=== PATIENT | female | born 1990 | race African-American/Black ===

== ENCOUNTER 2019-11-30 12:59 | Inpatient (IN) ==
[2019-11-30 13:34] LABS: URINE SOURCE VOIDED
[2019-11-30 13:41] LABS: BILIRUBIN URINE NEGATIVE (NEGATIVE); BLOOD URINE NEGATIVE (NEGATIVE); COLOR YELLOW; GLUCOSE URINE NEGATIVE (NEGATIVE); KETONE URINE NEGATIVE (NEGATIVE); LEUKOCYTES URINE NEGATIVE (NEGATIVE); NITRITE URINE NEGATIVE (NEGATIVE); PH URINE 6.5; PROTEIN URINE NEGATIVE (NEGATIVE); SP GRAVITY URINE 1.016; TURBIDITY URINE CLEAR (CLEAR); UROBILINOGEN URINE 2 mg/dL (NORMAL)
[2019-11-30] MEDS ORDERED: LR 500 ML IV ONE (15:04)
[2019-11-30] MEDS ORDERED: AMPICILLIN 2 GM in NS 100 ML IV ONE (15:04)
[2019-11-30] MEDS ORDERED: PEPCID IV PRN (15:04)
[2019-11-30] MEDS ORDERED: PEPCID PO PRN ×2 (15:04)
[2019-11-30] MEDS ORDERED: KEFZOL 2 GM/D5W 2 GM/50 ML IVPB IV PRN (15:04)
[2019-11-30] MEDS ORDERED: REGLAN PO PRN (15:04)
[2019-11-30] MEDS ORDERED: TYLENOL PO PRN (15:04)
[2019-11-30] MEDS ORDERED: ZOFRAN IV PRN (15:04)
[2019-11-30] MEDS ORDERED: SODIUM CHLORIDE 0.9% INJ SCH (15:15)
[2019-11-30] MEDS: LR 1,000 ML IV SCH ×2 (16:45→18:35)
[2019-11-30] MEDS: PITOCIN 30 UNITS/NS 30 UNIT/500 ML IV.SOLN IV SCH ×2 (17:00→22:24)
[2019-11-30 18:13] LABS: BASO# 0.02 X1000 (0.0-0.2); BASO% 0.2 % (0.0-0.8); EOS# 0.27 X1000 (0.0-0.7); EOS% 3.1 % (0.0-10.0); HEMATOCRIT 33.9 % (37.0-47.0); HEMOGLOBIN 11.3 g/dL (12.0-16.0); LYMPH# 2.69 X1000 (1.2-3.4); LYMPH% 30.5 % (20.5-51.1); MCH 28.9 PG (27-31); MCHC 33.3 g/dL (33-37); MCV 86.7 FL (81-99); MONO# 0.65 X1000 (0.11-0.59); MONO% 7.4 % (1.7-9.3); NEUT# 5.18 X1000 (1.4-6.5); NEUT% 58.8 % (42.2-75.2); PLT 202 X1000 (130-400); RBC 3.91 XMIL (4.2-5.4); RDW 12.7 % (11.5-14.5); WBC 8.81 X1000 (4.8-10.8)
[2019-11-30 18:17] LABS: INR 1.07; PROTIME 14.1 Seconds (11.0-16.0); PTT 28.7 Seconds (22.3-41.8)
[2019-11-30] MEDS ORDERED: PHENERGAN IV ONE (18:21)
[2019-11-30] MEDS ORDERED: SODIUM CHLORIDE 0.9% INJ ONE (18:21)
[2019-11-30] MEDS: STADOL IV PRN ×2 (18:34→21:07)
[2019-11-30 18:57] LABS: AGAP 15; ALB/GLOB RATIO 1.1; ALBUMIN 3.4 g/dL (3.5-5.0); ALKALINE PHOSPHATASE 171 U/L (32-104); BUN 6 mg/dL (8-22); CHLORIDE 103 mmol/L (98-107); COSMO 270; CREATININE 0.7 mg/dL (0.5-0.9); ESTIMATED GFR > 60; GLUCOSE 79 mg/dL (70-104); GOT 15 U/L (10-30); GPT 7 U/L (10-36); POTASSIUM 4.5 mmol/L (3.5-5.1); SODIUM 137 mmol/L (136-145); TCO2 19 mmol/L (25-35); TOTAL BILIRUBIN 0.36 mg/dL (0.20-1.00); TOTAL PROTEIN 6.5 g/dL (6.3-8.3)
[2019-11-30] MEDS ORDERED: AMPICILLIN 1 GM in NS 50 ML IV SCH (19:04)
[2019-11-30] MEDS ORDERED: NAROPIN 0.2% INJ ONE (20:27)
[2019-11-30] MEDS ORDERED: FENTANYL-BUPIV-NS 500 MCG-0.125% 250 ML EPIDURAL SCH (20:30)
[2019-11-30 20:46] LABS: UR AMPHETAMINES QUAL NONE DETECTED (NONE DETECT); UR BARBITUATES QUAL NONE DETECTED (NONE DETECT); UR BENZODIAZEPIN QUAL NONE DETECTED (NONE DETECT); UR CANNABINOIDS QUAL NONE DETECTED (NONE DETECT); UR COCAINE QUAL NONE DETECTED (NONE DETECT); UR METHADONE QUAL NONE DETECTED (NONE DETECT); UR OPIATES QUAL NONE DETECTED (NONE DETECT); UR OXYCODONE QUAL NONE DETECTED (NONE DETECT); UR PCP QUAL NONE DETECTED (NONE DETECT)
--- NOTE | 2019-11-30 21:21 | HISTORY AND PHYSICAL ---
CHIEF COMPLAINT: Leaking fluid. PRESENTING HISTORY: This is a 29-year-old G3, P0, 0-0-2-0 at 36 weeks and 6 days who presented to Labor and Delivery with a complaint of leaking clear fluid. She states she noticed it occur first at approximately 5:30 this morning after she woke up, and continued to leak clear fluid until she came in at 1:30 this afternoon. She denies any vaginal bleeding or contractions. She endorses movement. ROM Plus testing in triage was positive for rupture of membranes. She has received care this with Dr. Velázquez. Her has been complicated by tobacco abuse and urinary drug screen positive for marijuana. She also had an abnormal hemoglobin electrophoresis consistent with sickle cell trait. Her GBS status is unknown. ESTIMATED DUE DATE: 12/22/2019 by T2 ultrasound. OBSTETRIC HISTORY: 1. G1, SAB at approximately 4 weeks with no D C (2009). 2. G2, spontaneous at approximately 12 weeks, no D and C (2015). 3. G3 is current . GYNECOLOGIC HISTORY: She has a remote history of chlamydia and Trichomonas that were treated. Gonorrhea and Chlamydia were negative during this . She also states her Pap smear was normal this , but she has had a history of abnormal Pap smears in the past. PAST MEDICAL HISTORY: Denies medications. MEDICATIONS: vitamin p.o. daily. ALLERGIES: No known drug allergies. SURGICAL HISTORY: Denies. SOCIAL HISTORY: She smokes 1/2 pack per day. She denies any alcohol or drug use. FAMILY HISTORY: Denies. VITAL SIGNS: Blood pressure 113/75, heart rate 67, O2 saturation 96% on room air, respiratory rate 20. HEART TRACINGS: 140/moderate variability/positive accelerations/no decelerations. Tocometry negative. LABS: Urinalysis negative. membrane rupture positive. CBC, type and screen and 3rd- trimester labs pending. labs: Blood type B positive, HIV negative, RPR negative, hepatitis C antibody negative, hepatitis B surface antigen negative. Rubella immune. UDS positive for marijuana. Hemoglobin electrophoresis consistent with hemoglobin S trait. One-hour GTT 97. PHYSICAL EXAMINATION: GENERAL: Alert. Appears well, in no acute distress. LUNGS: Clear to auscultation, no respiratory distress. CARDIOVASCULAR: Regular rate and rhythm. ABDOMEN: Soft, gravid, nontender. STERILE VAGINAL EXAM: Fingertip, 20%, -4 station. EXTREMITIES: No clubbing, cyanosis, or edema. IMAGING: Vertex presentation on bedside ultrasound. ASSESSMENT/PLAN: A 29-year-old G3, P0, 0-0-2-0 at 36 weeks and 6 days with , pre-labor, rupture of membranes, tobacco abuse, sickle cell trait, limited care. 1. Admit to Labor and Delivery. 2. Continuous external monitoring and tocometry. 3. Group B Strep status is unknown, so we will treat with ampicillin. 4. We will start induction with IV Pitocin. 5. Patient may have epidural when she desires. 6. Anticipate vaginal delivery.
[2019-11-30] MEDS ORDERED: ATARAX PO PRN (22:20)
[2019-11-30] MEDS ORDERED: MOTRIN PO PRN (22:20)
[2019-11-30] MEDS ORDERED: MINERAL OIL PO PRN (22:20)
[2019-11-30] MEDS ORDERED: PITOCIN IM PRN (22:20)
[2019-11-30] MEDS ORDERED: PERCOCET-5 PO PRN (22:20)
[2019-11-30] MEDS ORDERED: BENADRYL IV PRN (22:20)
[2019-11-30] MEDS ORDERED: PERCOCET-10 PO PRN (22:20)
[2019-11-30] MEDS ORDERED: XYLOCAINE-MPF 1% INJ PRN (22:20)
[2019-11-30] MEDS ORDERED: PERI MEDS (DERMOPLAST/NUPERCAINAL/TUCKS) MISC PRN (22:20)
[2019-11-30] MEDS ORDERED: BOOSTRIX VACCINE IM ONE (22:20)
[2019-11-30] MEDS ORDERED: AMBIEN PO PRN (22:20)
[2019-11-30] MEDS ORDERED: CYTOTEC PO PRN (22:20)
[2019-11-30] MEDS ORDERED: HYDROXYZINE IM PRN (22:20)
[2019-11-30] MEDS ORDERED: M-M-R II VACCINE SUBQ ONE (22:20)
[2019-11-30] MEDS ORDERED: BENADRYL PO PRN (22:20)
[2019-11-30] MEDS ORDERED: PITOCIN 20 UNITS/NS 20 UNITS/1,000 ML IV.SOLN IV SCH (22:30)
[2019-11-30] MEDS ORDERED: PITOCIN 30 UNITS/NS 30 UNIT/500 ML IV.SOLN IV SCH (22:30)
[2019-12-01 05:56] LABS: BASO# 0.02 X1000 (0.0-0.2); BASO% 0.1 % (0.0-0.8); EOS# 0.07 X1000 (0.0-0.7); EOS% 0.5 % (0.0-10.0); HEMATOCRIT 31.2 % (37.0-47.0); HEMOGLOBIN 10.5 g/dL (12.0-16.0); IMM GRAN# 0.02 X1000 (0.0-0.04); IMM GRAN% 0.1 % (0.0-0.5); LYMPH# 1.97 X1000 (1.2-3.4); MCH 29.3 PG (27-31); MCHC 33.7 g/dL (33-37); MCV 87.2 FL (81-99); MONO% 7.8 % (1.7-9.3); MPV 11.1 FL (7.4-10.4); NEUT# 10.85 X1000 (1.4-6.5); NEUT% 77.5 % (42.2-75.2); PLT 174 X1000 (130-400); RBC 3.58 XMIL (4.2-5.4); RDW 12.5 % (11.5-14.5); WBC 14.03 X1000 (4.8-10.8)
--- NOTE | 2019-12-01 07:09 | OPERATIVE NOTE ---
PROCEDURE DATE: 11/30/2019 DELIVERY NOTE: A 29-year-old, G 3, P 0-0-2-0 at 36 weeks and 6 days presented to Labor and Delivery with P-PROM. She was induced with Pitocin and labor was uncomplicated. She underwent a spontaneous vaginal delivery of a vigorous viable male in CARLEY presentation with Apgars 9 and 10. The infant's head, shoulders and body delivered without difficulty with maternal pushing effort. The cord was clamped and cut and infant was placed on maternal chest. The placenta delivered spontaneously intact with a three-vessel cord. No vaginal lacerations were noted. Anesthesia epidural. Estimated blood loss 150 mL. Pediatric nurse in attendance. Mother stable in recovery room.
--- NOTE | 2019-12-01 12:45 | OB/GYN PROGRESS NOTE ---
- Subjective 29yo PPD#1 s/p at 36.6w. Pt currently w/o complaints. Denies pain. Ambulating and urinating without difficulty. Tolerating regular diet, denies fever/c/n/v. Reports decreased lochia and positive breast feeding. Still considering control options OB Physical Exam Vital Signs - 8 hr 12/01/19 08:00 Temperature 97.4 F L Pulse Rate 77 Respiratory Rate 16 Blood Pressure 112/72 - CONSTITUTIONAL General Appearance: appears well, alert, no apparent distress - RESPIRATORY Respiratory: lungs clear - CARDIOVASCULAR Cardiovascular: regular rate, rhythm - GASTROINTESTINAL (ABDOMEN) Abdominal Exam: non tender, soft (FF below umbilicus) - MUSCULOSKELETAL Extremity: no calf tenderness - PSYCHIATRIC Psych/Mental Status: normal mood/affect, oriented x 3 Active Medications Generic Name Dose Route Start Last Admin Trade Name Freq PRN Reason Stop Dose Admin Acetaminophen 650 mg 11/30/19 15:04 Tylenol PO Q4-6H PRN PRN Headache Benzocaine 1 each 11/30/19 22:20 Payton Meds (Dermoplast/Nupercainal/Tucks) MISC 3-4XDAY PRN PRN episiotomy/hemorrhoids Butorphanol Tartrate 2 mg 11/30/19 15:04 11/30/19 21:07 Stadol IV 2 mg PRN PRN Administration Pain Diphenhydramine HCl 12.5 mg 11/30/19 22:20 Benadryl IV Q4H PRN PRN Itching Diphenhydramine HCl 25 mg 11/30/19 22:20 Benadryl PO Q4H PRN PRN Itching Famotidine 20 mg 11/30/19 15:04 Pepcid PO ONCE PRN PRN section Famotidine 20 mg 11/30/19 15:04 Pepcid IV Q12H PRN PRN GI upset or indigestion Famotidine 40 mg 11/30/19 15:04 Pepcid PO Q12H PRN PRN GI upset or indigestion Hydroxyzine HCl 50 mg 11/30/19 22:20 Atarax PO Q3-4H PRN PRN Nausea Hydroxyzine HCl 50 mg 11/30/19 22:20 Hydroxyzine IM Q3-4H PRN PRN Nausea Cefazolin Sodium/Dextrose 2 gm in 50 mls @ 50 mls/hr 11/30/19 15:04 Kefzol 2 Gm/D5w IV ONCE PRN PRN section Fentanyl/Bupivacaine/Sodium Chlor 250 mls @ 0 mls/hr 11/30/19 20:30 Ashofgen-Oqmba-Gt 500 Mcg-0.125% EPIDURAL DIRECTED ROM As Directed Oxytocin/Sodium Chloride 20 units in 1,000 mls @ 0 mls/hr 11/30/19 22:30 11/30/19 22:24 Pitocin 20 Units/Ns IV 125 mls/hr .Q0M ROM Administration As Directed Ibuprofen 800 mg 11/30/19 22:20 Motrin PO Q8H PRN PRN cramping Lidocaine HCl 30 ml 11/30/19 22:20 Xylocaine-Mpf 1% INJ PRN PRN Perineal repair Metoclopramide HCl 10 mg 11/30/19 15:04 Reglan PO ONCE PRN PRN section Mineral Oil 30 ml 11/30/19 22:20 Mineral Oil PO PRN PRN Perineal massage Misoprostol 800 microgm 11/30/19 22:20 Cytotec PO PRN PRN Severe bleeding Ondansetron HCl 4 mg 11/30/19 15:04 11/30/19 17:32 Zofran IV 4 mg PRN PRN Administration Nausea Oxycodone/Acetaminophen 1 each 11/30/19 22:20 Percocet-10 PO Q3-4H PRN PRN Pain (7-10 on Pain Scale) Oxycodone/Acetaminophen 1 each 11/30/19 22:20 Percocet-5 PO Q3-4H PRN PRN Pain (1-6 on Pain Scale) Oxytocin 20 unit 11/30/19 22:20 Pitocin IM PRN PRN Severe bleeding Senna/Docusate Sodium 1 each 12/01/19 21:00 Pericolace PO QHS ROM Sodium Chloride 5 - 10 ml 11/30/19 15:15 Sodium Chloride 0.9% INJ DIRECTED ROM Zolpidem Tartrate 10 mg 11/30/19 22:20 Ambien PO HS PRN PRN Sleep Laboratory Results - last 24 hr 11/30/19 11/30/19 11/30/19 13:13 13:13 13:13 WBC RBC Hgb Hct MCV MCH MCHC RDW Std Deviation Plt Count MPV Immature Gran % (Auto) Neut % (Auto) Lymph % (Auto) Stanton % (Auto) Eos % (Auto) Baso % (Auto) Immature Gran # (Auto) Neut # (Auto) Lymph # (Auto) Stanton # (Auto) Eos # (Auto) Baso # (Auto) Corrected WBC (Man) PT INR PTT (Actin FS) Fibrinogen Sodium Potassium Chloride Carbon Dioxide Anion Gap BUN Creatinine Estimated GFR/1.73 m2 BUN/Creatinine Ratio Glucose Calculated Osmolality Uric Acid Calcium Total Bilirubin AST ALT Alkaline Phosphatase Total Protein Albumin Globulin Albumin/Globulin Ratio Urine Source VOIDED Urine Color YELLOW Urine Turbidity CLEAR Urine pH 6.5 Ur Specific [place] 1.016 Urine Protein NEGATIVE Ur Glucose (Stick) NEGATIVE Ur Ketones (Stick) NEGATIVE Urine Blood NEGATIVE Urine Nitrite NEGATIVE Urine Bilirubin NEGATIVE Urobilinogen Dipstick 2 A Urine Leukocytes NEGATIVE Membranes Rupture POSITIVE Urine Opiates Screen NONE DETECTED Ur Oxycodone Screen NONE DETECTED Ur Methadone, Qual NONE DETECTED Ur Barbiturates Screen NONE DETECTED Ur Phencyclidine Scrn NONE DETECTED Ur Amphetamines Screen NONE DETECTED U Benzodiazepines Scrn NONE DETECTED Urine Cocaine Screen NONE DETECTED U Cannabinoids Screen NONE DETECTED RPR Blood Type Antibody Screen 11/30/19 11/30/19 11/30/19 16:45 16:45 16:45 WBC Cancelled RBC Cancelled Hgb Cancelled Hct Cancelled MCV Cancelled MCH Cancelled MCHC Cancelled RDW Std Deviation Cancelled Plt Count Cancelled MPV Cancelled Immature Gran % (Auto) Cancelled Neut % (Auto) Cancelled Lymph % (Auto) Cancelled Stanton % (Auto) Cancelled Eos % (Auto) Cancelled Baso % (Auto) Cancelled Immature Gran # (Auto) Cancelled Neut # (Auto) Cancelled Lymph # (Auto) Cancelled Stanton # (Auto) Cancelled Eos # (Auto) Cancelled Baso # (Auto) Cancelled Corrected WBC (Man) Cancelled PT INR PTT (Actin FS) Fibrinogen Sodium Potassium Chloride Carbon Dioxide Anion Gap BUN Creatinine Estimated GFR/1.73 m2 BUN/Creatinine Ratio Glucose Calculated Osmolality Uric Acid Calcium Total Bilirubin AST ALT Alkaline Phosphatase Total Protein Albumin Globulin Albumin/Globulin Ratio Urine Source Urine Color Urine Turbidity Urine pH Ur Specific [place] Urine Protein Ur Glucose (Stick) Ur Ketones (Stick) Urine Blood Urine Nitrite Urine Bilirubin Urobilinogen Dipstick Urine Leukocytes Membranes Rupture Urine Opiates Screen Ur Oxycodone Screen Ur Methadone, Qual Ur Barbiturates Screen Ur Phencyclidine Scrn Ur Amphetamines Screen U Benzodiazepines Scrn Urine Cocaine Screen U Cannabinoids Screen RPR NON-REACTIVE Blood Type B POSITIVE Antibody Screen NEGATIVE 11/30/19 11/30/19 11/30/19 18:00 18:00 18:00 WBC 8.81 RBC 3.91 L Hgb 11.3 L Hct 33.9 L MCV 86.7 MCH 28.9 MCHC 33.3 RDW Std Deviation 12.7 Plt Count 202 MPV 11.0 H Immature Gran % (Auto) 0.0 Neut % (Auto) 58.8 Lymph % (Auto) 30.5 Stanton % (Auto) 7.4 Eos % (Auto) 3.1 Baso % (Auto) 0.2 Immature Gran # (Auto) 0.00 Neut # (Auto) 5.18 Lymph # (Auto) 2.69 Stanton # (Auto) 0.65 H Eos # (Auto) 0.27 Baso # (Auto) 0.02 Corrected WBC (Man) PT INR PTT (Actin FS) Fibrinogen Sodium 137 Potassium 4.5 Chloride 103 Carbon Dioxide 19 L Anion Gap 15 BUN 6 L Creatinine 0.7 Estimated GFR/1.73 m2 > 60 BUN/Creatinine Ratio 9 Glucose 79 Calculated Osmolality 270 Uric Acid 4.6 Calcium 9.0 Total Bilirubin 0.36 AST 15 ALT 7 L Alkaline Phosphatase 171 H Total Protein 6.5 Albumin 3.4 L Globulin 3.1 Albumin/Globulin Ratio 1.1 Urine Source Urine Color Urine Turbidity Urine pH Ur Specific [place] Urine Protein Ur Glucose (Stick) Ur Ketones (Stick) Urine Blood Urine Nitrite Urine Bilirubin Urobilinogen Dipstick Urine Leukocytes Membranes Rupture Urine Opiates Screen Ur Oxycodone Screen Ur Methadone, Qual Ur Barbiturates Screen Ur Phencyclidine Scrn Ur Amphetamines Screen U Benzodiazepines Scrn Urine Cocaine Screen U Cannabinoids Screen RPR Blood Type Antibody Screen 11/30/19 12/01/19 18:00 05:50 WBC 14.03 H RBC 3.58 L Hgb 10.5 L Hct 31.2 L MCV 87.2 MCH 29.3 MCHC 33.7 RDW Std Deviation 12.5 Plt Count 174 MPV 11.1 H Immature Gran % (Auto) 0.1 Neut % (Auto) 77.5 H Lymph % (Auto) 14.0 L Stanton % (Auto) 7.8 Eos % (Auto) 0.5 Baso % (Auto) 0.1 Immature Gran # (Auto) 0.02 Neut # (Auto) 10.85 H Lymph # (Auto) 1.97 Stanton # (Auto) 1.10 H Eos # (Auto) 0.07 Baso # (Auto) 0.02 Corrected WBC (Man) PT 14.1 INR 1.07 PTT (Actin FS) 28.7 Fibrinogen 414.0 Sodium Potassium Chloride Carbon Dioxide Anion Gap BUN Creatinine Estimated GFR/1.73 m2 BUN/Creatinine Ratio Glucose Calculated Osmolality Uric Acid Calcium Total Bilirubin AST ALT Alkaline Phosphatase Total Protein Albumin Globulin Albumin/Globulin Ratio Urine Source Urine Color Urine Turbidity Urine pH Ur Specific [place] Urine Protein Ur Glucose (Stick) Ur Ketones (Stick) Urine Blood Urine Nitrite Urine Bilirubin Urobilinogen Dipstick Urine Leukocytes Membranes Rupture Urine Opiates Screen Ur Oxycodone Screen Ur Methadone, Qual Ur Barbiturates Screen Ur Phencyclidine Scrn Ur Amphetamines Screen U Benzodiazepines Scrn Urine Cocaine Screen U Cannabinoids Screen RPR Blood Type Antibody Screen OB Assessment & Plan (1) Vaginal delivery Status: Acute Plan: 29 yo PPD#1 s/p at 36w6d 1. HD stable, afebrile 2. Routine PP care 3. Encourage ambulation 4. Bottle feeding 5. Readdress control options
[2019-12-01] MEDS: PERICOLACE PO SCH (21:00)
[2019-12-02] MEDS: PERICOLACE PO SCH (20:48)
[2019-12-03 08:34] VITALS: BP 135/83
--- NOTE | 2019-12-03 09:01 | DISCHARGE SUMMARY ---
ADMISSION DATE: 11/30/2019 DISCHARGE DATE: ADMITTING DIAGNOSES: 1. at 36 and 6/7 weeks gestation. 2. Rupture membranes. 3. Sickle cell trait. 4. GBS unknown. 5. Tobacco usage. BRIEF HISTORY AND HOSPITAL COURSE: The patient is a 29-year-old, 3, para 0, now 1 who is admitted at 36 and 6/7 weeks gestation to Labor and delivery with rupture membranes, spontaneous. She undergoes a normal labor followed by a normal spontaneous vaginal delivery without complication. Please see separate delivery note. Her course was uncomplicated. day #1 she is afebrile with stable vital signs. She is ambulating, voiding, tolerating a regular diet. Hemoglobin 10.5 down from 11.3. On day #2, ambulating, voiding, tolerating a regular diet. Vital signs stable, afebrile. She is discharged home in stable condition. She is asked to follow up in the office in 6 weeks. Call the office for pain fever greater than 100.4, abnormal uterine bleeding. Maintain pelvic rest and regular diet. Continue vitamins with iron. A prescription for vitamins and iron. Follow up in 6 weeks.
== END 2019-12-03 15:25 | disposition home or self-care (01) | DRG 807 ==
LOC: OPLD 12:59 → LD 13:02
PROVIDERS: ADMIT Student in an Organized Health Care Education/Training Program; ATTEND Student in an Organized Health Care Education/Training Program